=== PATIENT | female | born 1960 | race Asian ===

== ENCOUNTER 2020-11-25 09:52 | Outpatient (CLI) | payer BC, OTHER | END 2020-11-25 23:58 | disposition home or self-care (01) | LOC: INF 09:52 | PROVIDERS: ATTEND Internal Medicine | DX: Z23 Encounter for immunization (principal) | CPT/HCPCS: 96372 ==

== ENCOUNTER 2020-12-23 09:27 | Outpatient (CLI) | payer BC, OTHER | END 2020-12-23 21:42 | disposition home or self-care (01) | LOC: INF 09:27 | PROVIDERS: ATTEND Internal Medicine | DX: Z23 Encounter for immunization (principal) | CPT/HCPCS: 96372 ==